=== PATIENT | male | born 2000 | race Caucasian/White ===

== ENCOUNTER 2023-01-08 16:30 | Emergency (ER) | payer SELFPAY ==
[2023-01-08 16:35] VITALS: BP 140/106; PULSE 92; RESP 18; TEMP 36.6; O2SAT 100; BMI 28.1
--- NOTE | 2023-01-08 16:50 | ED.GENADUL1 ---
HPI - General Adult General Chief complaint: Abdominal Pain Stated complaint: Back Pain, Flank Pain, Sweating, Chills Time Seen by Provider: 01/08/23 16:33 Source: patient Mode of arrival: walk-in Limitations: no limitations History of Present Illness HPI narrative: 22-year-old male presents because he had pressure in his penis which is now resolved. He was weightlifting and had had some back pain about two weeks ago so he took some time off. He states today he was lifting weights and he felt a pressure in his back and his penis which lasted for about twenty minutes and resolved completely. At about forty minutes ago. He didn't fall and he had no testicular pain at any point. He had no direct trauma. Right now he is asymptomatic. He states he sweaty now because he took a fat burning [id number] supplement and he always sweats when he takes it. Related Data Home Medications Medication Instructions Recorded Confirmed No Known Home Medications 01/08/23 01/08/23 Allergies Allergy/AdvReac Type Severity Reaction Status Date / Time No Known Drug Allergies Allergy Verified 01/08/23 16:35 Review of Systems ROS Narrative A ten point review of systems is negative except as noted above. Exam Narrative Exam Narrative: Nurses note and vital signs reviewed and patient is not hypoxic. General: The patient appears well and in no apparent distress. Patient is resting comfortably on cart. Skin: Warm, diaphoretic, no pallor noted. There is no rash noted. Head: Normocephalic, atraumatic Eye: Normal conjunctiva, no drainage Ears, Nose, Mouth, and Throat: oral mucosa is moist. Nares patent. Cardiovascular: Regular Rate and Rhythm Respiratory: Patient is in no distress, no accessory muscle use, lungs are clear to auscultation, no wheezing, rales or rhonchi Back: non-tender GI: soft and nontender : No testicular tenderness or scrotal swelling. He has no swelling to his penis. No skin rash or other skin lesions. Musculoskeletal: The patient has no evidence of calf tenderness, no pitting edema, symmetrical pulses noted bilaterally Neurological: A&O, normal speech Psychiatric: Cooperative Constitutional Vital Signs, click to edit/add: Last Vital Signs Temp 98 F 01/08/23 16:35 Pulse 92 H 01/08/23 16:35 Resp 18 01/08/23 16:35 BP 140/106 H 01/08/23 16:35 Pulse Ox 100 01/08/23 16:35 O2 Del Method Room Air 01/08/23 16:35 Course Vital Signs Vital signs: Vital Signs Temperature 98 F 01/08/23 16:35 Pulse Rate 92 H 01/08/23 16:35 Respiratory Rate 18 01/08/23 16:35 Blood Pressure 140/106 H 01/08/23 16:35 Pulse Oximetry 100 01/08/23 16:35 Oxygen Delivery Method Room Air 01/08/23 16:35 Temperature 98 F 01/08/23 16:35 Pulse Rate 92 H 01/08/23 16:35 Respiratory Rate 18 01/08/23 16:35 Blood Pressure 140/106 H 01/08/23 16:35 Pulse Oximetry 100 01/08/23 16:35 Oxygen Delivery Method Room Air 01/08/23 16:35 Medical Decision Making MDM Narrative Medical decision making narrative: urinalysis is negative. He has no symptoms now and has a normal exam. He is released home. I suspect that his symptoms were due to muscle strain. Differential Diagnosis Differential Diagnosis: urinary tract infection, hematuria, muscle strain Lab Data Lab results reviewed: Yes I reviewed the patient's lab results Labs: Lab Results 01/08/23 Range/Units 17:00 Urine Color Lt. yellow (YELLOW) Urine Clarity Clear (CLEAR) Urine pH 6.0 (5.0-9.0) Ur Specific [place] 1.025 (1.005-1.025) Urine Protein Negative (NEG/TRACE) mg/dL Urine Glucose (UA) Negative (NEGATIVE) mg/dL Urine Ketones Negative (NEGATIVE) mg/dL Urine Occult Blood Negative (NEGATIVE) Urine Nitrite Negative (NEGATIVE) Urine Bilirubin Negative (NEGATIVE) Urine Urobilinogen 0.2 (0.2-1.0) EU/dL Ur Leukocyte Esterase Negative (NEGATIVE) Discharge Plan Discharge Chief Complaint: Abdominal Pain Clinical Impression: Abdominal pain Patient Disposition: Home, Self-Care Time of Disposition Decision: 17:26 Condition: Good Mode of Transportation: Private Vehicle Prescriptions / Home Meds: No Action No Known Home Medications Instructions: Abdominal Pain (ED) Stand Alone Forms: Portal Instructions Referrals: Physician,Non-Staff, MD [Primary Care Provider] - 1 week
[2023-01-08 17:11] LABS: Bilirubin Urine NEGATIVE (NEGATIVE); Blood Urine NEGATIVE (NEGATIVE); Clarity Urine CLEAR (CLEAR); Color Urine LT. YELLOW (YELLOW); Glucose Urine UA NEGATIVE (NEGATIVE); Ketones Urine NEGATIVE (NEGATIVE); Leukocyte Esterase Urine NEGATIVE (NEGATIVE); Nitrite Urine NEGATIVE (NEGATIVE); Protein Urine NEGATIVE (NEG/TRACE); Specific Gravity Urine 1.025 (1.005-1.025); Urobilinogen Urine 0.2 EU/dL (0.2-1.0)
[2023-01-08 17:25] LABS: Bacteria Urine NONE SEEN #/HPF (NONE SEEN); Mucus Urine NONE SEEN (NONE SEEN); RBC Urine 0-2 #/HPF (0-2); WBC Urine NONE SEEN #/HPF (NONE SEEN)
[2023-01-08 17:27] LABS: Crystals Seen? None Seen #/HPF (None Seen); Squamous Epithelial Cell Urine NONE SEEN #/LPF (NONE/RARE)
[2023-01-08 17:28] LABS: Cast Seen? NONE SEEN #/LPF (NONE SEEN)
== END 2023-01-08 17:32 | disposition home or self-care (01) ==
PROVIDERS: Emergency Provider Emergency Medicine
DX: R10.9 Unspecified abdominal pain (principal)
CPT/HCPCS: 81001; 99283